=== PATIENT | male | born 1985 | race African-American/Black ===

== ENCOUNTER 2021-01-20 20:52 | Inpatient (IN) | payer OTHER ==
[~2021-01-20] VITALS: Ht 190.5 cm; Wt 88.5 kg
[2021-01-20 21:55] VITALS: BP 145/84
[2021-01-20 22:00] VITALS: BP 145/84
[2021-01-20] MEDS ORDERED: OXYCODONE HCL/ACETAMINOPHEN 5/325MG TABLET PO PRN (22:00)
[2021-01-20] MEDS ORDERED: OXYCODONE HCL 5MG TABLET PO PRN ×2 (22:15→23:00)
[2021-01-20] MEDS ORDERED: OXYCODONE HCL 5MG TABLET PO NR (22:20)
[2021-01-20] MEDS ORDERED: BISACODYL 5MG TABLET PO PRN (23:00)
[2021-01-20] MEDS ORDERED: ONDANSETRON HCL 4MG TABLET PO PRN (23:00)
[2021-01-20] MEDS ORDERED: ACETAMINOPHEN 325MG TABLET PO PRN (23:00)
[2021-01-20] MEDS ORDERED: OXYCODONE HCL 10MG TABLET SR 12HR PO PRN (23:15)
[2021-01-20] MEDS ORDERED: SENNOSIDES/DOCUSATE SOD 8.6/50MG TABLET PO PRN (23:15)
[2021-01-21 06:16] LABS: BASOPHILS % 0.9 % (0.0-2.0); EOSINOPHILS % 2.8 % (0.0-5.0); HEMATOCRIT. 26.4 % (42.0-52.0); HEMOGLOBIN. 8.7 g/dL (14.0-18.0); LYMPHOCYTES % 18.9 % (20.0-50.0); MEAN CORPUSCULAR HEMOGLOBIN 27.5 pg (28.0-32.0); MEAN CORPUSCULAR VOLUME 83.2 fL (80.0-94.0); MEAN PLATELET VOLUME 6.6 fl (7.4-10.4); MONOCYTES % 10.4 % (2.0-8.0); PLATELET 785 x1000/uL (130-400); RED BLOOD CELL COUNT 3.18 mill/uL (4.7-6.1); RED CELL DISTRIBUTION WIDTH 14.4 % (11.6-14.6)
[2021-01-21 06:23] LABS: CHLORIDE 106 mEq/L (98-107)
[2021-01-21] MEDS: DOCUSATE SODIUM 100MG CAPSULE PO SCH ×2 (08:16→17:23)
[2021-01-21] MEDS: MAGNESIUM HYDROXIDE 400MG/5ML 30ML UDC PO PRN (08:19)
[2021-01-21] MEDS: OXYCODONE HCL 5MG TABLET PO PRN ×5 (08:30→21:33)
[2021-01-21] MEDS: ENOXAPARIN 40MG/0.4ML SYR SUBCUT SCH (08:45)
[2021-01-21] MEDS ORDERED: OXYCODONE HCL 20MG TABLET SR 12HR PO SCH (09:00)
[2021-01-21] MEDS ORDERED: ENOXAPARIN 30MG/0.3ML SYR SUBCUT SCH (09:00)
[2021-01-21] MEDS ORDERED: METHOCARBAMOL 500MG TABLET PO PRN (09:30)
[2021-01-21] MEDS: GABAPENTIN 300MG CAPSULE PO SCH ×2 (13:40→21:32)
[2021-01-21 20:00] VITALS: BP 135/72
[2021-01-22] MEDS: GABAPENTIN 300MG CAPSULE PO SCH ×3 (05:57→21:06)
[2021-01-22] MEDS: OXYCODONE HCL 5MG TABLET PO PRN ×5 (05:59→21:06)
[2021-01-22 08:00] VITALS: BP 137/72
[2021-01-22] MEDS: ENOXAPARIN 40MG/0.4ML SYR SUBCUT SCH (08:05)
[2021-01-22] MEDS: DOCUSATE SODIUM 100MG CAPSULE PO SCH ×2 (08:05→16:55)
[2021-01-22] MEDS ORDERED: LACTULOSE 20G/30ML UDC PO PRN (09:15)
[2021-01-22 10:08] LABS: BASOPHILS % 0.8 % (0.0-2.0); CHLORIDE 106 mEq/L (98-107); EOSINOPHILS % 2.2 % (0.0-5.0); HEMATOCRIT. 25.6 % (42.0-52.0); HEMOGLOBIN. 8.5 g/dL (14.0-18.0); LYMPHOCYTES % 17.4 % (20.0-50.0); MEAN CORPUSCULAR HEMOGLOBIN 27.5 pg (28.0-32.0); MEAN CORPUSCULAR VOLUME 82.9 fL (80.0-94.0); MEAN PLATELET VOLUME 6.8 fl (7.4-10.4); MONOCYTES % 9.8 % (2.0-8.0); NEUTROPHILS % 69.8 % (40.0-76.0); PLATELET 883 x1000/uL (130-400); RED BLOOD CELL COUNT 3.09 mill/uL (4.7-6.1); RED CELL DISTRIBUTION WIDTH 14.3 % (11.6-14.6)
[2021-01-22 10:15] LABS: PHOSPHORUS 4.2 mg/dL (2.5-4.9)
[2021-01-22 10:19] LABS: TOTAL IRON BINDING CAPACITY 252 ug/dL (250-450)
[2021-01-22 10:42] LABS: VITAMIN B12 SERUM 402 pg/mL (211-911)
[2021-01-22] MEDS ORDERED: IOHEXOL-300 100 ML BOTTLE ONE (11:19)
[2021-01-22] MEDS: LACTULOSE 20G/30ML UDC PO SCH ×3 (12:30→20:00)
[2021-01-22 12:34] LABS: FERRITIN 144 ng/mL (22-322)
[2021-01-22 12:45] LABS: HEPATITIS B SURFACE ANTIGEN NEGATIVE
[2021-01-22 13:15] LABS: HEPATITIS A AB IGM NEGATIVE (NEGATIVE)
[2021-01-22] MEDS ORDERED: CEFEPIME HCL 1000MG/VIAL INJ IM ONE (13:30)
[2021-01-22] MEDS ORDERED: VANCOMYCIN 1 G PREMIX 200 ML IV SCH (13:30)
[2021-01-22] MEDS ORDERED: VANCOMYCIN 2,000 MG in DEXT 5% WATER 500 ML IV SCH (15:00)
[2021-01-22] MEDS ORDERED: CEFEPIME 2,000 MG in DEXT 5% WATER 100 ML IV SCH (16:00)
[2021-01-22 20:00] VITALS: BP 168/71
[2021-01-23] MEDS ORDERED: VANCOMYCIN 1250MG in DEXTROSE 5% WATER 250ML IV SCH ×2 (04:00→18:00)
[2021-01-23] MEDS: CEFEPIME 1,000 MG in DEXTROSE 5% WATER 50 ML IV SCH ×2 (04:03→16:00)
[2021-01-23] MEDS: OXYCODONE HCL 5MG TABLET PO PRN ×5 (04:12→19:04)
[2021-01-23] MEDS: GABAPENTIN 300MG CAPSULE PO SCH ×2 (05:55→14:19)
[2021-01-23 07:19] LABS: CHLORIDE 103 mEq/L (98-107)
[2021-01-23 07:20] LABS: BASOPHILS % 1.2 % (0.0-2.0); HEMATOCRIT. 24.5 % (42.0-52.0); HEMOGLOBIN. 8.4 g/dL (14.0-18.0); LYMPHOCYTES % 19.4 % (20.0-50.0); MEAN CORPUSCULAR HEMOGLOBIN 28.9 pg (28.0-32.0); MEAN CORPUSCULAR VOLUME 83.9 fL (80.0-94.0); MEAN PLATELET VOLUME 6.5 fl (7.4-10.4); MONOCYTES % 8.1 % (2.0-8.0); NEUTROPHILS % 68.3 % (40.0-76.0); PLATELET 796 x1000/uL (130-400); RED BLOOD CELL COUNT 2.91 mill/uL (4.7-6.1); RED CELL DISTRIBUTION WIDTH 14.6 % (11.6-14.6)
[2021-01-23 08:00] VITALS: BP 131/68
[2021-01-23] MEDS: DOCUSATE SODIUM 100MG CAPSULE PO SCH ×2 (08:59→16:58)
[2021-01-23] MEDS: ENOXAPARIN 40MG/0.4ML SYR SUBCUT SCH (09:01)
[2021-01-23] MEDS: MAGNESIUM HYDROXIDE 400MG/5ML 30ML UDC PO PRN (09:02)
[2021-01-23 16:00] VITALS: BP 139/87
[2021-01-23 16:07] VITALS: BP 131/68
[2021-01-23 20:00] VITALS: BP 141/90
== END 2021-01-23 21:50 | disposition short-term general hospital (02) | DRG 342 ==
PROVIDERS: ADMIT Physical Medicine & Rehabilitation Spinal Cord Injury Medicine; ATTEND Family Medicine Adult Medicine
DX: S82.401B Unspecified fracture of shaft of right fibula, initial encounter for open fracture type I or II (principal); E44.0 Moderate protein-calorie malnutrition; S82.201B Unspecified fracture of shaft of right tibia, initial encounter for open fracture type I or II; I10 Essential (primary) hypertension; R74.01 Elevation of levels of liver transaminase levels; D47.3 Essential (hemorrhagic) thrombocythemia; D72.829 Elevated white blood cell count, unspecified; D64.9 Anemia, unspecified; R53.81 Other malaise; R20.0 Anesthesia of skin; R26.89 Other abnormalities of gait and mobility; W34.00XA Accidental discharge from unspecified firearms or gun, initial encounter; Y93.89 Activity, other specified; Y92.89 Other specified places as the place of occurrence of the external cause; Y99.8 Other external cause status; Z68.24 Body mass index [BMI] 24.0-24.9, adult; Z20.822 Contact with and (suspected) exposure to COVID-19
CPT/HCPCS: 36415; 73590; 73610; 73702; 80048; 80053; 80202; 82306; 82607; 82728; 82746; 83540; 83550; 83735; 84100; 84134; 84443; 85025; 85651; 86140; 86705; 86709; 86803; 87340; 87426; 93970; 97110; 97116; 97162; 97166; 97530; 97535; J0692; J1650; J3370; J7040; J7060; Q9967

== ENCOUNTER 2021-01-25 20:00 | Inpatient (IN) | payer OTHER ==
[~2021-01-25] VITALS: Ht 190.5 cm; Wt 90.3 kg
[2021-01-25 20:00] VITALS: BP_SYST 144; BP_DIAS 74; BP_DIAS 95
[2021-01-25] MEDS ORDERED: IPRATROPIUM/ALBUTEROL 0.5-3(2.5)MG/3ML NEB HHN PRN (21:30)
[2021-01-25] MEDS ORDERED: METHOCARBAMOL 500MG TABLET PO PRN (21:30)
[2021-01-25] MEDS ORDERED: SENNOSIDES/DOCUSATE SOD 8.6/50MG TABLET PO PRN (21:30)
[2021-01-25] MEDS ORDERED: ONDANSETRON HCL 4MG TABLET PO PRN (21:30)
[2021-01-25] MEDS ORDERED: MAGNESIUM HYDROXIDE 400MG/5ML 30ML UDC PO PRN (21:30)
[2021-01-25] MEDS: OXYCODONE HCL 5MG TABLET PO PRN (22:05)
[2021-01-25] MEDS: GABAPENTIN 300MG CAPSULE PO SCH (22:05)
[2021-01-26] MEDS: GABAPENTIN 300MG CAPSULE PO SCH ×3 (05:57→21:45)
[2021-01-26] MEDS: OXYCODONE HCL 5MG TABLET PO PRN ×3 (05:58→19:46)
[2021-01-26] MEDS: MUPIROCIN 2% OINT 22GM TOP SCH (06:17)
[2021-01-26 06:25] LABS: BASOPHILS % 0.6 % (0.0-2.0); EOSINOPHILS % 3.8 % (0.0-5.0); HEMATOCRIT. 27.5 % (42.0-52.0); HEMOGLOBIN. 9.5 g/dL (14.0-18.0); MEAN CORPUSCULAR HEMOGLOBIN 28.7 pg (28.0-32.0); MEAN CORPUSCULAR VOLUME 83.4 fL (80.0-94.0); MEAN PLATELET VOLUME 6.5 fl (7.4-10.4); MONOCYTES % 9.2 % (2.0-8.0); NEUTROPHILS % 59.4 % (40.0-76.0); PLATELET 868 x1000/uL (130-400); RED CELL DISTRIBUTION WIDTH 14.7 % (11.6-14.6)
[2021-01-26 06:46] LABS: CHLORIDE 105 mEq/L (98-107)
[2021-01-26 08:00] VITALS: BP 148/89
[2021-01-26] MEDS: ENOXAPARIN 40MG/0.4ML SYR SUBCUT SCH (08:01)
[2021-01-26] MEDS ORDERED: ENOXAPARIN 30MG/0.3ML SYR SUBCUT SCH (09:00)
[2021-01-26] MEDS ORDERED: DIPHENHYDRAMINE 50MG CAPSULE PO PRN (16:00)
[2021-01-26 20:00] VITALS: BP 162/97
[2021-01-26 21:00] VITALS: BP 153/94
[2021-01-27] MEDS: OXYCODONE HCL 5MG TABLET PO PRN ×6 (02:25→21:17)
[2021-01-27] MEDS: MUPIROCIN 2% OINT 22GM TOP SCH (05:18)
[2021-01-27] MEDS: GABAPENTIN 300MG CAPSULE PO SCH ×3 (06:32→21:11)
[2021-01-27 07:59] VITALS: BP 117/77
[2021-01-27] MEDS: ENOXAPARIN 40MG/0.4ML SYR SUBCUT SCH (09:09)
[2021-01-27 20:00] VITALS: BP 138/88
[2021-01-28] MEDS: OXYCODONE HCL 5MG TABLET PO PRN ×2 (05:35→13:13)
[2021-01-28] MEDS: GABAPENTIN 300MG CAPSULE PO SCH ×3 (05:36→20:33)
[2021-01-28 06:55] LABS: BASOPHILS % 0.6 % (0.0-2.0); EOSINOPHILS % 4.6 % (0.0-5.0); HEMATOCRIT. 26.6 % (42.0-52.0); HEMOGLOBIN. 9.2 g/dL (14.0-18.0); LYMPHOCYTES % 27.2 % (20.0-50.0); MEAN CORPUSCULAR VOLUME 83.7 fL (80.0-94.0); MEAN PLATELET VOLUME 6.8 fl (7.4-10.4); MONOCYTES % 9.7 % (2.0-8.0); NEUTROPHILS % 57.9 % (40.0-76.0); PLATELET 762 x1000/uL (130-400); RED BLOOD CELL COUNT 3.18 mill/uL (4.7-6.1); RED CELL DISTRIBUTION WIDTH 14.6 % (11.6-14.6)
[2021-01-28 07:26] LABS: FOLIC ACID (FOLATE) SERUM 8.7 ng/mL (>5.38)
[2021-01-28 07:45] LABS: CHLORIDE 109 mEq/L (98-107)
[2021-01-28 08:00] VITALS: BP 131/84
[2021-01-28 08:15] LABS: C REACTIVE PROTEIN QUANT 3.8 mg/L (0.0-3.0)
[2021-01-28] MEDS: MUPIROCIN 2% OINT 22GM TOP SCH (08:49)
[2021-01-28] MEDS: ENOXAPARIN 40MG/0.4ML SYR SUBCUT SCH (08:49)
[2021-01-28] MEDS: CYANOCOBALAMIN 1000MCG/ML VIAL IM SCH (09:15)
[2021-01-28] MEDS ORDERED: KETOROLAC 15MG/ML VIAL IM PRN (19:15)
[2021-01-28 20:00] VITALS: BP 143/88
[2021-01-28] MEDS: OXYCODONE HCL 10MG TABLET SR 12HR PO SCH (20:32)
[2021-01-28] MEDS: METHOCARBAMOL 500MG TABLET PO SCH (20:33)
[2021-01-29] MEDS: GABAPENTIN 300MG CAPSULE PO SCH ×3 (05:45→20:33)
[2021-01-29] MEDS: OXYCODONE HCL 5MG TABLET PO PRN ×2 (05:46→17:58)
[2021-01-29 06:33] LABS: BASOPHILS % 1.3 % (0.0-2.0); EOSINOPHILS % 3.2 % (0.0-5.0); HEMATOCRIT. 27.3 % (42.0-52.0); HEMOGLOBIN. 9.3 g/dL (14.0-18.0); LYMPHOCYTES % 28.7 % (20.0-50.0); MEAN CORPUSCULAR VOLUME 82.3 fL (80.0-94.0); MEAN PLATELET VOLUME 6.9 fl (7.4-10.4); MONOCYTES % 8.6 % (2.0-8.0); NEUTROPHILS % 58.2 % (40.0-76.0); PLATELET 817 x1000/uL (130-400); RED BLOOD CELL COUNT 3.32 mill/uL (4.7-6.1); RED CELL DISTRIBUTION WIDTH 14.6 % (11.6-14.6)
[2021-01-29 06:42] LABS: CHLORIDE 106 mEq/L (98-107)
[2021-01-29 08:19] VITALS: BP 132/83
[2021-01-29] MEDS: ENOXAPARIN 40MG/0.4ML SYR SUBCUT SCH (09:25)
[2021-01-29] MEDS: METHOCARBAMOL 500MG TABLET PO SCH ×3 (09:25→16:47)
[2021-01-29] MEDS: CYANOCOBALAMIN 1000MCG/ML VIAL IM SCH (09:25)
[2021-01-29] MEDS: OXYCODONE HCL 10MG TABLET SR 12HR PO SCH ×2 (09:26→20:33)
[2021-01-29] MEDS: MUPIROCIN 2% OINT 22GM TOP SCH (13:42)
[2021-01-29] MEDS ORDERED: LACTULOSE 20G/30ML UDC PO SCH ×2 (14:21→14:25)
[2021-01-29] MEDS: LACTULOSE 20G/30ML UDC PO SCH ×3 (16:47→20:34)
[2021-01-29 20:00] VITALS: BP 141/80
[2021-01-30] MEDS: DIPHENHYDRAMINE 50MG CAPSULE PO SCH ×2 (01:38→23:37)
[2021-01-30] MEDS: METHOCARBAMOL 500MG TABLET PO SCH ×5 (01:38→20:54)
[2021-01-30] MEDS: GABAPENTIN 300MG CAPSULE PO SCH ×3 (06:22→20:54)
[2021-01-30] MEDS: OXYCODONE HCL 5MG TABLET PO PRN (06:23)
[2021-01-30 07:48] VITALS: BP 128/80
[2021-01-30 07:54] VITALS: BP 128/80
[2021-01-30] MEDS: CYANOCOBALAMIN 1000MCG/ML VIAL IM SCH (08:16)
[2021-01-30] MEDS: ENOXAPARIN 40MG/0.4ML SYR SUBCUT SCH (08:17)
[2021-01-30] MEDS: MUPIROCIN 2% OINT 22GM TOP SCH (08:20)
[2021-01-30] MEDS: OXYCODONE HCL 10MG TABLET SR 12HR PO SCH ×2 (10:00→23:37)
[2021-01-30 20:00] VITALS: BP 151/91
[2021-01-30 20:55] VITALS: BP 143/85
[2021-01-31] MEDS: GABAPENTIN 300MG CAPSULE PO SCH ×3 (06:15→22:01)
[2021-01-31] MEDS: METHOCARBAMOL 500MG TABLET PO SCH ×2 (07:42→07:48)
[2021-01-31] MEDS: OXYCODONE HCL 10MG TABLET SR 12HR PO SCH ×2 (07:43→20:45)
[2021-01-31] MEDS: ENOXAPARIN 40MG/0.4ML SYR SUBCUT SCH (07:43)
[2021-01-31] MEDS: CYANOCOBALAMIN 1000MCG/ML VIAL IM SCH (07:43)
[2021-01-31] MEDS: MUPIROCIN 2% OINT 22GM TOP SCH (07:44)
[2021-01-31] MEDS ORDERED: METHOCARBAMOL 500MG TABLET PO PRN (10:15)
[2021-01-31] MEDS: OXYCODONE HCL 5MG TABLET PO PRN (15:24)
[2021-01-31 20:00] VITALS: BP 138/88
[2021-01-31] MEDS: ACETAMINOPHEN 325MG TABLET PO PRN (20:42)
[2021-01-31] MEDS: DIPHENHYDRAMINE 50MG CAPSULE PO SCH (20:43)
[2021-02-01] MEDS: GABAPENTIN 300MG CAPSULE PO SCH ×3 (05:21→21:22)
[2021-02-01] MEDS: OXYCODONE HCL 5MG TABLET PO PRN ×2 (05:23→13:54)
[2021-02-01 07:44] VITALS: BP 165/98
[2021-02-01] MEDS: OXYCODONE HCL 10MG TABLET SR 12HR PO SCH ×2 (08:40→21:23)
[2021-02-01] MEDS: ACETAMINOPHEN 325MG TABLET PO PRN (08:41)
[2021-02-01] MEDS: CYANOCOBALAMIN 1000MCG/ML VIAL IM SCH (08:41)
[2021-02-01] MEDS: ENOXAPARIN 40MG/0.4ML SYR SUBCUT SCH (08:50)
[2021-02-01] MEDS: MUPIROCIN 2% OINT 22GM TOP SCH (09:00)
[2021-02-01] MEDS ORDERED: GABA-532 PO (17:02)
[2021-02-01] MEDS ORDERED: OXYC-485 PO (17:02)
[2021-02-01] MEDS ORDERED: METH-773 PO (17:02)
[2021-02-01] MEDS ORDERED: SENN1TAB35 PO (17:02)
[2021-02-01] MEDS ORDERED: OXYC10TA58 PO (17:02)
[2021-02-01] MEDS ORDERED: MOM PO (17:02)
[2021-02-01] MEDS ORDERED: MUPI22OI2 TOP (17:02)
[2021-02-01] MEDS ORDERED: B50 PO (17:02)
[2021-02-01 20:00] VITALS: BP 152/80
[2021-02-01] MEDS: DIPHENHYDRAMINE 50MG CAPSULE PO SCH (21:00)
[2021-02-02] MEDS: DIPHENHYDRAMINE 50MG CAPSULE PO SCH (01:02)
[2021-02-02] MEDS: OXYCODONE HCL 5MG TABLET PO PRN (04:23)
[2021-02-02] MEDS: GABAPENTIN 300MG CAPSULE PO SCH (05:27)
[2021-02-02 06:57] VITALS: BP 136/79
[2021-02-02 07:19] VITALS: BP 136/79
[2021-02-02 08:53] VITALS: BP 136/79
[2021-02-02] MEDS: OXYCODONE HCL 10MG TABLET SR 12HR PO SCH (08:53)
[2021-02-02] MEDS: ENOXAPARIN 40MG/0.4ML SYR SUBCUT SCH (08:54)
[2021-02-02] MEDS: MUPIROCIN 2% OINT 22GM TOP SCH (08:55)
== END 2021-02-02 09:22 | disposition home health service (06) | DRG 342 ==
PROVIDERS: ADMIT Physical Medicine & Rehabilitation Spinal Cord Injury Medicine; ATTEND Family Medicine Adult Medicine
DX: S82.201B Unspecified fracture of shaft of right tibia, initial encounter for open fracture type I or II (principal); E44.0 Moderate protein-calorie malnutrition; L97.909 Non-pressure chronic ulcer of unspecified part of unspecified lower leg with unspecified severity; L02.415 Cutaneous abscess of right lower limb; S82.401B Unspecified fracture of shaft of right fibula, initial encounter for open fracture type I or II; I10 Essential (primary) hypertension; D72.829 Elevated white blood cell count, unspecified; D64.9 Anemia, unspecified; R20.0 Anesthesia of skin; R26.89 Other abnormalities of gait and mobility; R53.81 Other malaise; R74.01 Elevation of levels of liver transaminase levels; R79.89 Other specified abnormal findings of blood chemistry; W34.00XA Accidental discharge from unspecified firearms or gun, initial encounter; Y93.89 Activity, other specified; Y92.89 Other specified places as the place of occurrence of the external cause; Y99.8 Other external cause status
CPT/HCPCS: 36415; 80048; 80053; 82306; 82607; 82746; 84134; 85025; 85651; 86140; 93970; 97110; 97116; 97530; 97535; J1650; J3420; Q0163